=== PATIENT | male | born 1980 | race Caucasian/White ===

== ENCOUNTER 2021-09-14 21:04 | Emergency (ER) | payer OTHER ==
[~2021-09-14] VITALS: Ht 182.9 cm; Wt 118.0 kg
[~2021-09-14 21:04] MED LIST: BACTROBAN2 % EX; ERYTHROMYCIN O3.5 GM OS; NO HOME MEDS; PHENTERMINE37.5 M1 PO; TORADOL OR; ZITHROMAX500 MG PO
[2021-09-14 22:49] VITALS: BP 135/75
== END 2021-09-14 22:49 | disposition home or self-care (01) | DRG 563 ==
LOC: ED 21:04
PROC: 2W3VXYZ Immobilization of Left Toe using Other Device (ICD-10-PCS; principal; 2021-09-14)
DX: S92.512A Displaced fracture of proximal phalanx of left lesser toe(s), initial encounter for closed fracture (principal); C95.90 Leukemia, unspecified not having achieved remission; W22.09XA Striking against other stationary object, initial encounter; Y92.009 Unspecified place in unspecified non-institutional (private) residence as the place of occurrence of the external cause